=== PATIENT | female | born 1990 | race African-American/Black ===

== ENCOUNTER 2019-02-18 09:21 | Emergency (ER) | payer MEDICAID ==
[~2019-02-18] VITALS: Ht 165.1 cm; Wt 59.0 kg
[2019-02-18 09:44] VITALS: BP 112/69
== END 2019-02-18 10:34 | disposition home or self-care (01) ==
LOC: ER 09:21
DX: D17.9 Benign lipomatous neoplasm, unspecified (principal); F12.10 Cannabis abuse, uncomplicated
CPT/HCPCS: 81025; 99282